=== PATIENT | female | born 1955 | race Caucasian/White ===

== ENCOUNTER 2023-04-26 05:33 | Outpatient (REF) | payer MEDICARE, MEDICAID, SELFPAY ==
[2023-04-26 05:45] LABS: Eosinophils Percent Auto 0.2 % (0-4); Imm Gran Pct Auto 4.4 % (0.0-0.4); MANUAL DIFF FLAG SCAN; Mean Corpuscular HGB Conc 31.7 g/dl (31.0-35.0); Monocytes Percent Auto 5.3 % (2-11); PLT CLUMP 1; SCAN SMEAR FLAG 1
[2023-04-26 05:47] LABS: Basophils Percent Auto 0.2 % (0-2); Imm Gran Abs Auto 0.57 X10*3/uL (0.00-0.03); Lymphocytes Absolute Auto 0.5 X10*3/uL (1.2-4.9); Lymphocytes Percent Auto 3.7 % (20-40); Mean Corpuscular Hemoglobin 30.1 pg (27.0-33.0); Mean Corpuscular Volume 95.2 fL (80.0-98.0); Mean Platelet Volume 11.5 fL (9.4-12.3); Monocytes Absolute Auto 0.7 X10*3/uL (0.1-1.2); NRBC Pct Auto 0.2 /100WBC (0.0-0.2); Neutrophils Absolute Auto 11.3 x10*3/uL (2.0-8.3); Neutrophils Percent Auto 86.2 % (45-73); Red Blood Count 2.09 X10*6/uL (4.20-5.50); Red Cell Distribution Width 17.8 % (11.0-16.0)
[2023-04-26 06:05] LABS: Alanine Aminotransferase 54 U/L (0-31); Albumin Level 2.9 g/dL (3.5-5.0); Alkaline Phosphatase 60 U/L (39-117); Anion Gap 13 (12-20); Aspartate Amino Transferase 25 U/L (5-31); Bilirubin Total 0.6 mg/dL (0.0-1.0); Blood Urea Nitrogen 58 mg/dL (9-16); Calcium 8.9 mg/dL (8.4-10.2); Carbon Dioxide 27 mmol/L (22-29); Chloride 102 mmol/L (96-108); Estimated Glomerular Filt Rate > 60; Glucose Random 127 mg/dL (60-115); Potassium 4.8 mmol/L (3.3-5.1); Sodium 137 mmol/L (135-145); Total Protein 4.9 g/dL (6.5-8.0)
[2023-04-26 06:22] LABS: Platelet Count 51 X10*3/uL (160-400); White Blood Count 13.7 X10*3/uL (4.8-10.8)
[2023-04-26 06:29] LABS: Hemoglobin 6.3 g/dl (12.0-16.0)
[2023-04-26 06:30] LABS: Hematocrit 19.9 % (37.0-47.0)
[2023-04-26 06:31] LABS: SLIDE REVIEW VERIFIED
== END 2023-04-26 05:34 | disposition home or self-care (01) ==
LOC: HO.MMNH2L 05:33
PROVIDERS: Visit Provider Family Medicine
DX: C79.9 Secondary malignant neoplasm of unspecified site (principal)
CPT/HCPCS: 36415; 80053; 85025